=== PATIENT | male | born 1970 | race Caucasian/White ===

== ENCOUNTER 2019-07-10 16:10 | Day surgery (SDC) | payer OTHER ==
[2019-07-10 17:35] LABS: ADD MAN DIFF? NO
[2019-07-10 17:37] LABS: BASOPHIL # 0.1 10^3/ul (0.0-0.1); BASOPHILS % 0.7 % (0.0-2.0); EOSINOPHILS # 0.1 10^3/ul (0.0-0.5); EOSINOPHILS % 1.1 % (0.0-7.0); HEMATOCRIT 47.1 % (42.0-52.0); HEMOGLOBIN 15.4 g/dl (14.0-18.0); LYMPHOCYTES # 2.1 10^3/ul (0.8-2.9); LYMPHOCYTES % 29.3 % (15.0-51.0); MEAN CORPUSCULAR HEMOGLOBIN 29.4 pg (29.0-33.0); MEAN CORPUSCULAR HGB CONC 32.7 g/dl (32.0-37.0); MEAN CORPUSCULAR VOLUME 89.9 fl (82.0-101.0); MEAN PLATELET VOLUME 9.9 fl (7.4-10.4); MONOCYTE # 0.6 10^3/ul (0.3-0.9); MONOCYTES % 8.2 % (0.0-11.0); NEUTROPHIL # 4.4 10^3/ul (1.6-7.5); NEUTROPHILS % 60.4 % (39.0-77.0); PLATELET COUNT 252 10^3/UL (140-415); RED BLOOD COUNT 5.24 10^6/ul (4.70-6.10)
[2019-07-10 17:37] LABS: WHITE BLOOD COUNT 7.3 10^3/ul (4.8-10.8)
[2019-07-10] MEDS ORDERED: POLYMYXIN/BACITRACIN 1L IRRIG (18:52)
[2019-07-10] MEDS ORDERED: HYDROmorphONE 2 MG/ML SYG (18:59)
[2019-07-10] MEDS ORDERED: MIDAZOLAM 1 MG/ML 2 ML INJ (18:59)
[2019-07-10] MEDS ORDERED: OXYCODONE/ACETAMINOPHEN (5/325) TAB PO ×2 (19:00)
[2019-07-10] MEDS ORDERED: HYDROmorphONE 1 MG/5 ML IV SYRINGE IV ×2 (19:00)
[2019-07-10] MEDS ORDERED: ROCURONIUM 50 MG INJ (19:00)
[2019-07-10] MEDS ORDERED: ROPIVACAINE 0.5 % 30 ML VIAL (19:06)
[2019-07-10] MEDS ORDERED: CEFAZOLIN 1 GM INJ (19:26)
[2019-07-10] MEDS ORDERED: ONDANSETRON 4 MG INJ (19:28)
[2019-07-10] MEDS: LIDOCAINE 1%/EPI (1:100,000) (MDV) 20 ML (19:36)
[2019-07-10] MEDS: BUPIVACAINE 0.5%/EPI (SDV) 30 ML INJ (19:36)
[2019-07-10] MEDS ORDERED: SUGAMMADEX SODIUM 200 MG/2 ML VIAL IV (21:24)
[2019-07-10] MEDS ORDERED: MEPERIDINE 25 MG INJ IV (22:00)
[2019-07-10] MEDS: ONDANSETRON 4 MG INJ IV (22:38)
[2019-07-10] MEDS: HYDROmorphONE 1 MG/5 ML IV SYRINGE IV (22:42)
== END 2019-07-10 23:40 | disposition home or self-care (01) ==
LOC: SDS 16:10
DX: S52.5 Fracture of lower end of radius (principal); X58.XXXD Exposure to other specified factors, subsequent encounter
CPT/HCPCS: 25608; 71045; 73110-LT; 85025